=== PATIENT | female | born 1945 | race Caucasian/White ===

== ENCOUNTER 2020-08-19 09:47 | Day surgery (SDC) | payer MEDICARE, OTHER ==
[2020-08-17 12:40] VITALS: BMI 23.9
--- NOTE | 2020-08-17 14:27 | HP ---
HISTORY OF PRESENT ILLNESS: Ms. Hinkle is a 75-year-old white female, G1, P1, with previous history of uterine polyps. She has had now #4 recurrences of uterine polyps and initially was seen in September 2019 for some mild postmenopausal bleeding. She had a transvaginal ultrasound performed at that visit, which essentially showed her to have a very large polyp that filled her entire uterine cavity. That was biopsied in 2019, which was showed to be benign. Due to the size of the polyp and the recurrence, she was recommended to have a TLH-BSO. The patient had forgone surgery due to her fear of COVID-19 infection and again was recommended for surgical therapy. She now is desiring to proceed with surgical therapy and did have a followup biopsy in May 2020, again showing a benign endometrial polyp, with the ultrasound showing again basically filled the whole uterine cavity. There were no adnexal masses seen. The ultrasound on 05/15/2020, showed the uterus measuring 5.8 cm x 4.2 cm x 3.2 cm with an endometrial thickness of 13.2 mm, which appears to be a large polyp filling the entire endometrial cavity measuring 3.1 x 1.2 cm. No adnexal masses were noted. PAST MEDICAL HISTORY: Unremarkable. PAST SURGICAL HISTORY: Noted for lumpectomy of the left breast, biopsy of the breast in the past, and bilateral tubal ligation of the fallopian tubes. She has also had several hysteroscopy, D and C's for polyp removals in the past. One spontaneous vaginal delivery. ALLERGIES: SHE HAS PRESUMED ALLERGY TO CODEINE, BUT DESCRIBES HER TO FEELING SORT OF DIZZY AND LOOPY ON THE CODEINE, SO NOT REALLY AN ALLERGY, MORE OF A SIDE EFFECT. CURRENT MEDICATIONS: 1. Ibuprofen 800 mg tablet as needed for pain. 2. Vitamin D and calcium. PHYSICAL EXAMINATION: VITAL SIGNS: Height 5 feet 3-1/2 inches, weight 140, BMI 24.4, blood pressure 130/78, pulse 72, respiratory rate 18. HEENT: Within normal limits. CHEST: Clear to auscultation. HEART: Regular rate and rhythm, S1 and S2 heart sounds. No murmurs, rubs, or gallops. ABDOMEN: Soft, nontender, nondistended with no palpable masses. PELVIC: Vulva and vagina had no lesions. Cervix had no lesions. Uterus was small, nontender, mobile. The uterus sounded to 8 cm, with two passes at the time of the endometrial biopsy showing benign a polyp. ASSESSMENT: This is a 75-year-old white female, G1, P1 with prior endometrial polyp with surgical removal x3. Now with a very large endometrial polyp that fills the entire uterine cavity. Subsequent biopsies x2 continued to be benign, but due to the recurrence of the polyps and the large size, recommend definitive surgical therapy. Plan is for robotic TLH-BSO, scheduled for 08/19/2020. Job ID: [id number]
[2020-08-19] MEDS ORDERED: Gabapentin 300 MG CAP ONE (10:08)
[2020-08-19] MEDS ORDERED: CeleCOXIB 100 MG CAP ONE (10:09)
[2020-08-19] MEDS ORDERED: Famotidine/PF 20 mg/2ml Vial ONE (10:09)
[2020-08-19 10:48] LABS: Anion Gap 14 mmol/L (10-20); BUN (Urea Nitrogen) 18 mg/dL (9.8-20.1); Calc. Creatinine Clearance 49 mL/min (70-130); Calcium 9.8 mg/dL (7.8-10.44); Carbon Dioxide 26 mmol/L (23-31); Chloride 105 mmol/L (98-107); Glucose 98 mg/dL (83-110); Potassium 4.2 mmol/L (3.5-5.1); Sodium 141 mmol/L (136-145)
[2020-08-19 11:09] LABS: #Basophils 0.1 thou/uL (0.0-0.2); #Eosinphils 0.1 thou/uL (0.0-0.7); #Lymphocytes 1.3 thou/uL (1.20-3.40); #Monocytes 0.4 thou/uL (0.11-0.59); #Neutrophils 4.5 thou/uL (1.40-6.50); %Basophils 1.3 % (0.0-1.0); %Eosinophils 2.3 % (0.0-10.0); %Lymphocytes 19.7 % (21.0-51.0); %Monocytes 5.5 % (0.0-10.0); %Neutrophils 71.2 % (42.0-75.0); Hemoglobin 13.2 g/dL (12.0-16.0); Mean Corpuscular HGB CONC 32.9 g/dL (32.0-36.0); Mean Corpuscular Hemoglobin 28.5 pg (27.0-31.0); Mean Corpuscular Volume 86.8 fL (78.0-98.0); Mean Platelet Volume 8.8 fL (7.4-10.4); Platelet Count 225 thou/uL (130-400); Red Blood Cell (RBC) Count 4.61 mill/uL (4.20-5.40); White Blood Cell (WBC) Count 6.3 thou/uL (4.8-10.8)
[2020-08-19] MEDS ORDERED: Fentanyl 100 MCG/2 ML VIAL ONE ×2 (11:13→14:57)
[2020-08-19] MEDS ORDERED: Methylene Blue 50 MG/10 ML AMPUL ONE (11:29)
[2020-08-19] MEDS ORDERED: Bupivacaine PF 0.5% 30 ML VIAL ONE (11:29)
[2020-08-19] MEDS ORDERED: Lidocaine 1% w/Epinephrine 1:100K 20 ML VIAL ONE (11:29)
[2020-08-19] MEDS ORDERED: Midazolam HCl 2 mg/2 ml Vial ONE (11:33)
[2020-08-19] MEDS ORDERED: Rocuronium Bromide 10 MG/ML (10ML VIAL) ONE (11:50)
[2020-08-19] MEDS ORDERED: Dexamethasone 20 MG/5 ML VIAL ONE (11:50)
[2020-08-19] MEDS ORDERED: Ondansetron PF 4 MG/2 ML Vial ONE (11:50)
[2020-08-19] MEDS ORDERED: Glycopyrrolate 0.2 MG/ML 5 ML SYRINGE ONE (11:50)
[2020-08-19] MEDS ORDERED: Lidocaine 1% PF 5 ML VIAL ONE (11:50)
[2020-08-19] MEDS ORDERED: PROPOFOL 200 MG/20 ML VIAL ONE (11:50)
[2020-08-19] MEDS ORDERED: Morphine 4 MG/ML VIAL SLOW IVP PRN (13:37)
[2020-08-19] MEDS ORDERED: Morphine 2 MG/ML VIAL SLOW IVP PRN (13:37)
[2020-08-19] MEDS ORDERED: diphenhydrAMINE 25 MG CAP PO PRN (13:37)
[2020-08-19] MEDS ORDERED: traMADol HCl 50 MG TAB PO PRN (13:37)
[2020-08-19] MEDS ORDERED: Promethazine HCl 25 MG/ML VIAL IM PRN (13:37)
[2020-08-19] MEDS ORDERED: Bisacodyl 10 MG SUPP PR PRN (13:37)
[2020-08-19] MEDS ORDERED: Ondansetron PF 4 MG/2 ML Vial IVP PRN (13:37)
[2020-08-19] MEDS ORDERED: Simethicone Chewable 80 MG TAB PO PRN (13:37)
--- NOTE | 2020-08-19 15:06 | OP ---
DATE OF PROCEDURE: 08/19/2020 PREOPERATIVE DIAGNOSES: 1. A 75-year-old white female with postmenopausal bleeding. 2. Large endometrial polyp. 3. History of previous endometrial polyps. POSTOPERATIVE DIAGNOSES: 1. A 75-year-old white female with postmenopausal bleeding. 2. Large endometrial polyp. 3. History of previous endometrial polyps. PROCEDURES PERFORMED: Robotic total laparoscopic hysterectomy with bilateral salpingo-oophorectomy and lysis of adhesions. HOLLOCK MAKER SURGEON: Eri Coleman PA-C ANESTHESIA: General endotracheal. ESTIMATED BLOOD LOSS: 25 mL. COMPLICATIONS: None. COUNTS: Correct x2. ANTIBIOTICS: 2 g Ancef on-call to the OR. FINDINGS: 1. Normal-appearing postmenopausal uterus, tubes, and ovaries. 2. Omental adhesions noted to the lower anterior abdominal wall, status post adhesiolysis. 3. Bladder was watertight to fluid distention prior to anterior colpotomy and also clear urine present postprocedure. 4. Bilateral ureteral peristalsis visualized postprocedure. DISPOSITION: Recovery room, stable. DESCRIPTION OF PROCEDURE: The patient previously received informed consent in regard to surgery. She was taken back to the operating room, where she received a general endotracheal anesthetic agent without complications. She was placed in dorsal lithotomy position with the use of Brodie stirrups and prepped and draped in usual sterile fashion. At this time, a Walters catheter was placed and a side-arm speculum was placed in vagina. Anterior lip of the cervix was grasped with a single-tooth tenaculum. The uterus sounded to 7 cm. A size 6 cm GILBERT uterine manipulator with a 3.0 cm cervical cup was then placed. Tenaculum and speculum had been removed. Attention was then turned to the abdomen, where perspective trocar sites were infiltrated with 0.5% Marcaine with epinephrine. A 12-mm infraumbilical incision was made. Veress needle entered into the peritoneal cavity with patient pressure of less than 5 mm. Abdomen was insufflated to the patient pressure of 15, approximately 5 L of carbon dioxide gas was instilled. Veress needle was then removed. A 12-mm trocar was then placed through the infraumbilical incision and the laparoscope was introduced through the trocar sleeve. Proper entry was confirmed. Additional bilateral lower quadrant 8-mm trocars were placed under laparoscopic guidance along with the right upper quadrant 11-mm port. Robot was then docked. The patient had been placed in Trendelenburg position. I broke scrub and then proceeded to carry out the procedure from the operative console while my assistants remained at the bedside. With monopolar cautery and bipolar fenestrated cautery, this was utilized to take down the omental adhesions that were in the lower abdomen in a layering technique. Hemostasis was confirmed. Once this was accomplished, the hysterotomy was carried out. My judicial administrative assistant grasped the left fallopian tube. Some filmy adhesions to the sigmoid were taken down sharply with monopolar scissors and then the left IP ligament was free from the sidewall. It was coagulated hugging close to the ovary and coagulated and transected. Serial coagulation and transection of the broad ligament hugging close to uterus was carried down until the left round ligament was reached. It was coagulated and transected and the anterior leaf of the broad ligament was entered. peritoneum was layered and dissecting this in layering technique dropping the bladder safely past the cervicovaginal margin. The uterine vessels were skeletonized and then coagulated in the internal cervical os region with bipolar fenestrated cautery. This was carried out again on the right side, where the right IP ligament was coagulated, transected and then serial coagulation of the broad ligament was carried down until the right round ligament was reached. It was coagulated and transected and the anterior leaf of the broad ligament again was entered dissecting the vesicouterine peritoneum. They remained in a layering technique safely, dropping the bladder past the cervicovaginal margin. The uterine vessels again were skeletonized and coagulated in the internal cervical os region. Prior colpotomy, the bladder was distended and the site for anterior colpotomy incision was noted to be free from any evidence of the bladder. The anterior colpotomy was made from 12 o'clock to 3 o'clock and 12 o'clock to 9 o'clock and completed posteriorly from 6 o'clock to 9 o'clock and 6 o'clock to 3 o'clock. Specimen was delivered in the vaginal vault and then the monopolar scissor was switched out for a Demetrius needle stock driver. I coagulated the remainder of the vaginal cuff for any areas of bleeding with bipolar fenestrated cautery. Once this was secured, a Stratafix suture was brought in by my judicial administrative assistant. I closed the vaginal cuff in a double-layer closure starting from the right angle towards the left angle, back towards the right angle. The excess suture and needle were then cut and removed through the right upper quadrant port site. We irrigated the pelvis. All the pedicle sites were noted to be hemostatic. Bilateral ureteral peristalsis was noted on each pelvic sidewall. The Walters was draining clear urine. Then, we undocked the robot after the instruments were removed, all the trocar sleeves were removed. I then rescrubbed and closed the deep stitch in [id number] stitch fashion in the fascial defect at the umbilicus and the remainder of the trocar sites were then closed with 4-0 Monocryl subcuticular and Dermabond. A sponge sticks of the vagina was performed and hemostasis of the vaginal vault was confirmed. The patient was awakened from anesthesia and transferred to the recovery room in stable condition. Job ID: [id number]
[2020-08-19] MEDS: Sodium Chloride 0.9% 1,000 ML IV SCH ×2 (17:09→21:45)
[2020-08-19] MEDS ORDERED: Ketorolac Tromethamine 30 MG/ML VIAL IVP PRN (18:00)
[2020-08-19] MEDS: Docusate 100 MG CAP PO SCH (21:22)
[2020-08-20 00:54] VITALS: TEMP 97.8
[2020-08-20] MEDS: Sodium Chloride 0.9% 1,000 ML IV SCH (05:45)
[2020-08-20 06:58] LABS: Hemoglobin 12.1 g/dL (12.0-16.0); Mean Corpuscular HGB CONC 33.1 g/dL (32.0-36.0); Mean Corpuscular Hemoglobin 28.4 pg (27.0-31.0); Mean Corpuscular Volume 85.9 fL (78.0-98.0); Mean Platelet Volume 8.9 fL (7.4-10.4); Platelet Count 234 thou/uL (130-400); RBC Distribution Width 12.1 % (11.5-14.5); Red Blood Cell (RBC) Count 4.25 mill/uL (4.20-5.40); White Blood Cell (WBC) Count 15.9 thou/uL (4.8-10.8)
--- NOTE | 2020-08-20 07:47 | PDOC.EVN ---
Event Note - Event Note Event Note: Tolerating diet. Ambulating, voiding. Minimal pain O:AFVSS HCT 36.5% ABD: soft/non distended. Trochar sites clean, dry , intact. A/P:Doing well post op day #1...Discharge home. F/u 2 and 6 weeks ......
[2020-08-20] MEDS: Docusate 100 MG CAP PO SCH (07:57)
[2020-08-20 08:11] VITALS: BP 122/57
--- NOTE | 2020-08-20 08:27 | DIS ---
DATE OF ADMISSION: 08/19/2020 DATE OF DISCHARGE: 08/20/2020 DIAGNOSES: Abnormal uterine bleeding due to endometrial polyp, postmenopausal bleeding. PROCEDURE PERFORMED: Robotic TLH-BSO. SUMMARY OF HOSPITAL COURSE: Ms. Hinkle is a 75-year-old white female with previous history of endometrial polyps with surgical removal x3, who had presented again with postmenopausal bleeding. She was noted to have a very large endometrial polyp filling her entire uterine cavity. Preliminary biopsies were benign to continue to have bleeding. She underwent definitive surgical therapy with a robotic TLH-BSO on 08/19. Postoperatively, the patient has done well. She is ambulating, voiding, and tolerating diet without difficulty and has minimal pain. Her vital signs remained stable throughout the hospital stay and postoperative day 1, hematocrit 36.5%. Pathology is pending at time of discharge. She will be discharged this morning with followup in 2 and 6 weeks. She has a prescription for tramadol 50 mg q.6 hours p.r.n. as needed for pain and also instructed to use Tylenol and [id number] ibuprofen for mild pain. Job ID: [id number]
[2020-08-20] MEDS ORDERED: Aspirin 325 MG TAB PO SCH (09:00)
[2020-08-24] MEDS ORDERED: Ergocalciferol 1.25 MG(50,000 UNITS) CAP PO SCH (09:00)
== END 2020-08-20 10:45 | disposition home or self-care (01) ==
LOC: SDC 09:47 → EDBD 13:00 → 3SE 13:37 → SDC 08-20 10:45
PROVIDERS: ATTEND Obstetrics & Gynecology
PROC: 0UT94ZZ Resection of Uterus, Percutaneous Endoscopic Approach (ICD-10-PCS; principal; 2020-08-19)
PROC: 0UT24ZZ Resection of Bilateral Ovaries, Percutaneous Endoscopic Approach (ICD-10-PCS; 2020-08-19)
PROC: 0UT74ZZ Resection of Bilateral Fallopian Tubes, Percutaneous Endoscopic Approach (ICD-10-PCS; 2020-08-19)
DX: D25.2 Subserosal leiomyoma of uterus (principal); N84.0 Polyp of corpus uteri; N95.0 Postmenopausal bleeding; N88.8 Other specified noninflammatory disorders of cervix uteri; K66.0 Peritoneal adhesions (postprocedural) (postinfection); E78.5 Hyperlipidemia, unspecified; M81.0 Age-related osteoporosis without current pathological fracture; F41.9 Anxiety disorder, unspecified; Z79.82 Long term (current) use of aspirin; Z87.891 Personal history of nicotine dependence; Z88.5 Allergy status to narcotic agent; Z91.048 Other nonmedicinal substance allergy status
CPT/HCPCS: 36415; 80048; 85025; 85027; 86850; 86900; 86901; 88307; 93005; 93010; J0690; J1100; J2250; J2405; J2704; J3010; Q9968; S0020; S0028